=== PATIENT | male | born 1940 | race Asian ===

== ENCOUNTER 2016-10-16 00:04 | Inpatient (IN) | payer MEDICARE, MEDICAID ==
[2016-10-16] VITALS (18 sets, daily range): BP systolic 117–138; BP diastolic 49–67; PULSE 49–76; RESP 17–22; TEMP 97–98.1; O2SAT 95–99
[~2016-10-16] VITALS: Ht 170.2 cm; Wt 78.0 kg
[~2016-10-16 00:04] MED LIST: ACET325T53 GT; ACET650S22 GT; AMIN30LI2 GT; ASCO-339 GT; ASCO125T GT; ASCO500T20 GT; ASPI325T2 GT; ATOR80TA63 GT; CARV12.548 GT; CARV6.2554 GT; DOCU-144 GT; DULR10 RC; EPOE40003 SUBCUT; ESCI20TA GT; FAMO40OR3 GT; FER300L GT; FERR220S15 GT; FOLI-43 GT; FURO-149 GT; HEPA500014 SUBCUT; HYDR-1189 GT; INSU100V11 SQ; INSU100V9 SUBCUT; LACT10SO66 GT; LACTIN PO; LEVE100S GT; LEVE500T13 GT; LEVE500T13 PO; LORA-258 GT; LORA5TAB8 GT; LOSA50TA3 GT; MAGN400O4 GT; METO2.5T6 GT; METO5SOL GT; MINE473O2 GT; MULT-1117 GT; NOR10 GT; NUT.250L18 GT; OMEP20CA10 GT; ONDA4SYR GT; ONDA4TAB55 GT; POTA20PA4 GT; POTA20TA83 PO; PRO40 GT; ROB1 GT; SENN8.8S12 GT; SIME80TA GT; SSREG SUBCUT; SUCR1TAB78 GT; [UNRECOGNIZED DRUG - OTHER] GT
[2016-10-16 00:44] LABS: BILIRUBIN,URINE NEGATIVE (NEGATIVE); BLOOD, URINE NEGATIVE (NEGATIVE); COLOR,URINE YELLOW (YELLOW); GLUCOSE,URINE NEGATIVE (NEGATIVE); KETONES,URINE NEGATIVE (NEGATIVE); LEUKOCYTE ESTERASE ,URINE 2+ (NEGATIVE); NITRITE, URINE NEGATIVE (NEGATIVE); PH,URINE 5.5 (5.0-8.0); PROTEIN URINE 2+ (NEGATIVE); UROBILINOGEN,URINE 0.2 (0.2-1.0)
[2016-10-16 00:58] LABS: BASOPHILS # (AUTO) 0.1 K/uL (0.0-0.2); BASOPHILS % (AUTO) 0.4 % (0.0-2.0); EOSINOPHILS % (AUTO) 0.2 % (0.0-4.0); HEMOGLOBIN 8.7 g/dL (14.0-18.0); LYMPHOCYTES # (AUTO) 0.5 K/uL (1.0-5.5); LYMPHOCYTES % (AUTO) 2.7 % (20.5-51.5); MEAN CORPUSCULAR HEMOGLOBIN 28 pg (27-31); MEAN CORPUSCULAR HGB CONC 32 % (32-36); MEAN CORPUSCULAR VOLUME 88 fL (79.0-98.0); MONOCYTES # (AUTO) 0.3 K/uL (0.0-1.0); MONOCYTES % (AUTO) 1.8 % (1.7-9.3); NEUTROPHILS # (AUTO) 15.8 K/uL (1.8-7.7); PLATELET COUNT (AUTO) 306 K/uL (130-430); RED BLOOD CELL COUNT(AUTO) 3.07 MIL/uL (4.2-6.2); WHITE BLOOD COUNT (AUTO) 16.7 K/uL (4.8-10.8)
[2016-10-16 01:09] LABS: BACTERIA,URINE MODERATE /HPF (None Seen); CLARITY/URINE HAZY (CLEAR); RBC,URINE 0-3 /HPF (0-3); WBC,URINE 80-100 /HPF (0-3)
[2016-10-16 01:10] LABS: MUCUS,URINE None Seen /LPF (None Seen)
[2016-10-16 01:17] LABS: ALANINE AMINOTRANSFERASE 23 U/L (12-78); ALBUMIN 2.5 g/dL (3.4-4.8); ASPARTATE AMINOTRANSFERASE 24 U/L (10-37); CALCIUM 8.6 mg/dL (8.4-11.0); CHLORIDE 92 mmol/L (98-107); CREATININE 2.05 mg/dL (0.55-1.30); GLUCOSE 75 mg/dL (70-99); TOTAL BILIRUBIN 0.3 mg/dL (0.0-1.0); TOTAL PROTEIN, SERUM 7.1 g/dL (6.4-8.3)
[2016-10-16 01:30] LABS: ANION GAP 6 (5-15); SODIUM SERUM 125 mmol/L (136-145)
[2016-10-16] MEDS ORDERED: LEVOFLOXACIN 500 MG/D5W 100 ML IV ONE (01:45)
[2016-10-16 01:47] LABS: POTASSIUM 7.1 mmol/L (3.5-5.1); UREA NITROGEN, BLOOD 115 mg/dL (8-21)
[2016-10-16 01:51] LABS: NEUTROPHILS % (AUTO) 94.9 % (40.0-70.0)
[2016-10-16] MEDS ORDERED: DULR10 RC (01:54)
[2016-10-16] MEDS ORDERED: CARV12.548 GT (01:54)
[2016-10-16] MEDS ORDERED: ASPI325T2 GT (01:54)
[2016-10-16] MEDS ORDERED: ATOR80TA63 GT (01:54)
[2016-10-16] MEDS ORDERED: NOR10 GT (01:54)
[2016-10-16] MEDS ORDERED: ASCO500T20 GT (01:54)
[2016-10-16] MEDS ORDERED: DEXTROSE 50% JECT 50 ML DISP.SYRIN IVP ONE ×2 (02:00→09:15)
[2016-10-16] MEDS ORDERED: INSULIN REGULAR, HUMAN 10 UNITS/0.1 ML INJ IVP ONE (02:00)
[2016-10-16] MEDS ORDERED: CALCIUM GLUCONATE 1 GM/10 ML VIAL IVP ONE (02:00)
[2016-10-16] MEDS ORDERED: SODIUM BICARBONATE 8.4% JECT 50 MEQ/50 ML SYRINGE IVP ONE ×2 (02:00→09:15)
[2016-10-16] MEDS ORDERED: NS 500 ML IV ONE (02:15)
[2016-10-16] MEDS ORDERED: ASPIRIN 81 MG TAB.CHEW GT ONE (02:15)
[2016-10-16] MEDS ORDERED: IPRATROPIUM/ALBUTEROL SULFATE 3 ML AMPUL.NEB INH SCH (02:30)
[2016-10-16] MEDS ORDERED: IPRATROPIUM/ALBUTEROL SULFATE 3 ML AMPUL.NEB INH PRN (02:30)
[2016-10-16] MEDS: NACL 0.9% 1,000 ML IV SCH ×2 (04:27→11:50)
[2016-10-16 06:54] LABS: HEMATOCRIT 26.2 % (36-54); HEMOGLOBIN 8.6 g/dL (14.0-18.0); MEAN CORPUSCULAR HEMOGLOBIN 29 pg (27-31); MEAN CORPUSCULAR HGB CONC 33 % (32-36); MEAN CORPUSCULAR VOLUME 89 fL (79.0-98.0); PLATELET COUNT (AUTO) 303 K/uL (130-430); RED BLOOD CELL COUNT(AUTO) 2.96 MIL/uL (4.2-6.2); RED CELL DISTRIBUTION WIDTH 18.4 % (9.0-15.0); WHITE BLOOD COUNT (AUTO) 16.7 K/uL (4.8-10.8)
[2016-10-16 07:58] LABS: ANION GAP 7 (5-15); CALCIUM 8.8 mg/dL (8.4-11.0); CHLORIDE 91 mmol/L (98-107); CREATININE 1.95 mg/dL (0.55-1.30); SODIUM SERUM 127 mmol/L (136-145)
[2016-10-16 08:34] LABS: ATYPICAL LYMPHOCYTES % 0 % (0-0); BAND % (MANUAL) 5 % (0-6); BASOPHILS % (MANUAL) 0 % (0-2); EOSINOPHILS % (MANUAL) 2 % (0-7); LYMPHOCYTES % (MANUAL) 6 % (20-46); MONOCYTES % (MANUAL) 5 % (0-11)
[2016-10-16 08:35] LABS: POTASSIUM 6.9 mmol/L (3.5-5.1); UREA NITROGEN, BLOOD 109 mg/dL (8-21)
[2016-10-16 08:36] LABS: GLUCOSE 47 mg/dL (70-99)
[2016-10-16] MEDS ORDERED: INSULIN REGULAR, HUMAN 100 UNITS/ML, 10 ML VIAL IVP ONE (09:15)
[2016-10-16] MEDS ORDERED: FUROSEMIDE 20 MG/2 ML VIAL IVP ONE (09:15)
[2016-10-16] MEDS ORDERED: DEXTROSE 50% JECT 50 ML DISP.SYRIN ONE (09:37)
[2016-10-16] MEDS ORDERED: SODIUM POLYSTYRENE SULFONATE 15 GM/60 ML UDBTL RC ONE ×2 (10:30→16:00)
[2016-10-16 12:19] LABS: ANION GAP 5 (5-15); CALCIUM 8.7 mg/dL (8.4-11.0); CHLORIDE 95 mmol/L (98-107); CREATININE 2.02 mg/dL (0.55-1.30); GLUCOSE 135 mg/dL (70-99); SODIUM SERUM 131 mmol/L (136-145)
[2016-10-16 12:26] LABS: POTASSIUM 5.9 mmol/L (3.5-5.1); UREA NITROGEN, BLOOD 109 mg/dL (8-21)
[2016-10-16] MEDS: D10W 1,000 ML IV SCH ×2 (13:29→22:29)
[2016-10-16] MEDS: LEVOFLOXACIN 250 MG/D5W 50 ML IV SCH (20:15)
[2016-10-16 21:39] LABS: ANION GAP 10 (5-15); CALCIUM 8.6 mg/dL (8.4-11.0); CHLORIDE 93 mmol/L (98-107); CREATININE 1.78 mg/dL (0.55-1.30); GLUCOSE 126 mg/dL (70-99); SODIUM SERUM 126 mmol/L (136-145)
[2016-10-16 21:45] LABS: POTASSIUM 5.5 mmol/L (3.5-5.1)
[2016-10-16 21:48] LABS: UREA NITROGEN, BLOOD 100 mg/dL (8-21)
[2016-10-17] VITALS (16 sets, daily range): BP systolic 98–138; BP diastolic 48–96; PULSE 72–87; RESP 18–20; TEMP 97.5–98.4; O2SAT 98–100
[2016-10-17 07:17] LABS: BASOPHILS % (AUTO) 0.2 % (0.0-2.0); EOSINOPHILS # (AUTO) 0.1 K/uL (0.0-0.4); EOSINOPHILS % (AUTO) 0.9 % (0.0-4.0); HEMATOCRIT 25.7 % (36-54); HEMOGLOBIN 8.6 g/dL (14.0-18.0); LYMPHOCYTES # (AUTO) 0.5 K/uL (1.0-5.5); LYMPHOCYTES % (AUTO) 5.1 % (20.5-51.5); MEAN CORPUSCULAR HEMOGLOBIN 29 pg (27-31); MEAN CORPUSCULAR HGB CONC 34 % (32-36); MEAN CORPUSCULAR VOLUME 87 fL (79.0-98.0); MONOCYTES # (AUTO) 0.8 K/uL (0.0-1.0); MONOCYTES % (AUTO) 8.4 % (1.7-9.3); NEUTROPHILS # (AUTO) 7.8 K/uL (1.8-7.7); NEUTROPHILS % (AUTO) 85.4 % (40.0-70.0); PLATELET COUNT (AUTO) 266 K/uL (130-430); RED BLOOD CELL COUNT(AUTO) 2.94 MIL/uL (4.2-6.2); RED CELL DISTRIBUTION WIDTH 17.6 % (9.0-15.0)
[2016-10-17 07:24] LABS: WHITE BLOOD COUNT (AUTO) 9.2 K/uL (4.8-10.8)
[2016-10-17 07:24] LABS: BLOOD GAS BASE EXCESS 2.2 mmol/L (-3.0-3.0); BLOOD GAS PH 7.439 (7.350-7.450)
[2016-10-17 07:25] LABS: ABG TOTAL HEMOGLOBIN 9.2 G/dL (12.0-18.0); BLOOD GAS COHb% 0.9 % (0.5-1.5); BLOOD GAS HHB 3.7 % (0.0-6.0); BLOOD O2Hb% 95.3 % (94.0-97.0)
[2016-10-17 07:30] LABS: PROTHROMBIN TIME 10.6 SECS (9.5-12.5)
[2016-10-17 07:49] LABS: ALANINE AMINOTRANSFERASE 22 U/L (12-78); ALBUMIN 2.3 g/dL (3.4-4.8); ANION GAP 11 (5-15); ASPARTATE AMINOTRANSFERASE 23 U/L (10-37); CALCIUM 8.7 mg/dL (8.4-11.0); CHLORIDE 92 mmol/L (98-107); CREATININE 1.69 mg/dL (0.55-1.30); GLUCOSE 171 mg/dL (70-99); SODIUM SERUM 133 mmol/L (136-145); TOTAL BILIRUBIN 0.3 mg/dL (0.0-1.0); TOTAL PROTEIN, SERUM 6.6 g/dL (6.4-8.3); UREA NITROGEN, BLOOD 86 mg/dL (8-21)
[2016-10-17] MEDS: D10W 1,000 ML IV SCH (09:55)
[2016-10-17] MEDS ORDERED: D5/0.45 NS 1,000 ML IV SCH (11:33)
[2016-10-17] MEDS ORDERED: MIDAZOLAM HCL 5 MG/5 ML VIAL ONE (15:27)
[2016-10-17] MEDS ORDERED: fentaNYL CITRATE/PF 100 MCG/2 ML AMP ONE (15:28)
[2016-10-17] MEDS ORDERED: CEFAZOLIN 1 GM IVPB PREMIX 50 ML IV ONE (15:30)
[2016-10-17 17:29] LABS: BF APPEARANCE UNSPUN SLIGHTLY CLOUDY (CLEAR); BODY FLUID SOURCE/ TYPE THORACENTESIS; SOURCE/TYPE ,BODY FLUID PLEURAL
[2016-10-17 17:30] LABS: BODY FLUID COLOR DARK YELLOW (LT YELLOW); BODY FLUID TOTAL VOLUME 1100 mL
[2016-10-17 20:41] LABS: LYMPHOCYTES, BODY FLUID 15 %; MONOCYTES,BODY FLUID 30 %; NEUTROPHIL, BODY FLUID 55 %; RBC, BODY FLUID 4222 /uL; WBC, BODY FLUID 433 /uL
[2016-10-17] MEDS: LACTOBACILLUS RHAMNOSUS GG 1 CAP CAPSULE PO SCH (21:52)
[2016-10-17] MEDS: LEVOFLOXACIN 250 MG/D5W 50 ML IV SCH (21:52)
[2016-10-18] VITALS (19 sets, daily range): BP systolic 133–152; BP diastolic 63–68; PULSE 72–84; RESP 16–18; TEMP 97.5–99.2; O2SAT 98–100; Ht 170.2 cm; Wt 78.0 kg
[2016-10-18 07:31] LABS: ALANINE AMINOTRANSFERASE 21 U/L (12-78); ANION GAP 7 (5-15); ASPARTATE AMINOTRANSFERASE 21 U/L (10-37); CALCIUM 8.2 mg/dL (8.4-11.0); CHLORIDE 93 mmol/L (98-107); GLUCOSE 241 mg/dL (70-99); POTASSIUM 3.5 mmol/L (3.5-5.1); SODIUM SERUM 130 mmol/L (136-145); TOTAL BILIRUBIN 0.3 mg/dL (0.0-1.0); TOTAL PROTEIN, SERUM 5.9 g/dL (6.4-8.3); UREA NITROGEN, BLOOD 56 mg/dL (8-21)
[2016-10-18] MEDS: LACTOBACILLUS RHAMNOSUS GG 1 CAP CAPSULE PO SCH ×2 (08:27→20:42)
[2016-10-18] MEDS: 0.45% NACL 1,000 ML IV SCH ×2 (08:35→20:42)
[2016-10-18 10:41] LABS: BASOPHILS % (AUTO) 0.2 % (0.0-2.0); EOSINOPHILS # (AUTO) 0.1 K/uL (0.0-0.4); EOSINOPHILS % (AUTO) 1.6 % (0.0-4.0); HEMOGLOBIN 8.4 g/dL (14.0-18.0); LYMPHOCYTES # (AUTO) 0.4 K/uL (1.0-5.5); LYMPHOCYTES % (AUTO) 5.1 % (20.5-51.5); MEAN CORPUSCULAR HEMOGLOBIN 29 pg (27-31); MEAN CORPUSCULAR HGB CONC 32 % (32-36); MEAN CORPUSCULAR VOLUME 88 fL (79.0-98.0); MONOCYTES # (AUTO) 0.3 K/uL (0.0-1.0); MONOCYTES % (AUTO) 3.3 % (1.7-9.3); NEUTROPHILS # (AUTO) 7.8 K/uL (1.8-7.7); NEUTROPHILS % (AUTO) 89.8 % (40.0-70.0); PLATELET COUNT (AUTO) 259 K/uL (130-430); RED BLOOD CELL COUNT(AUTO) 2.94 MIL/uL (4.2-6.2); RED CELL DISTRIBUTION WIDTH 17.2 % (9.0-15.0); WHITE BLOOD COUNT (AUTO) 8.6 K/uL (4.8-10.8)
[2016-10-18 18:42] LABS: BODY FLUID GLUCOSE 187 mg/dL
[2016-10-18 18:43] LABS: BODY FLUID TOTAL PROTEIN 2.6 g/dL
[2016-10-18 18:59] LABS: SOURCE/TYPE ,BODY FLUID PLEURAL
[2016-10-18 19:00] LABS: APPEARANCE,SPUN,BODY FLUID CLEAR (CLEAR); BF APPEARANCE UNSPUN HAZY (CLEAR); BODY FLUID COLOR YELLOW (LT YELLOW); BODY FLUID SOURCE/ TYPE THORACENTESIS; BODY FLUID TOTAL VOLUME 1110 mL; WBC, BODY FLUID 72 /uL
[2016-10-18 19:01] LABS: LYMPHOCYTES, BODY FLUID 18 %; MONOCYTES,BODY FLUID 72 %; NEUTROPHIL, BODY FLUID 10 %; RBC, BODY FLUID 276 /uL
[2016-10-18] MEDS: LEVOFLOXACIN 250 MG/D5W 50 ML IV SCH (20:43)
[2016-10-18 22:47] LABS: BODY FLUID GLUCOSE 227 mg/dL
[2016-10-18 22:48] LABS: BODY FLUID TOTAL PROTEIN 2.4 g/dL
[2016-10-19] VITALS (18 sets, daily range): BP systolic 138–157; BP diastolic 67–83; PULSE 76–92; RESP 16–21; TEMP 96.8–99.7; O2SAT 93–100
[2016-10-19 07:24] LABS: ANION GAP 5 (5-15); CALCIUM 8.2 mg/dL (8.4-11.0); CHLORIDE 95 mmol/L (98-107); CREATININE 1.13 mg/dL (0.55-1.30); GLUCOSE 232 mg/dL (70-99); POTASSIUM 3.8 mmol/L (3.5-5.1); SODIUM SERUM 131 mmol/L (136-145); UREA NITROGEN, BLOOD 40 mg/dL (8-21)
[2016-10-19 07:33] LABS: BASOPHILS % (AUTO) 0.2 % (0.0-2.0); EOSINOPHILS # (AUTO) 0.1 K/uL (0.0-0.4); HEMATOCRIT 26.5 % (36-54); HEMOGLOBIN 8.6 g/dL (14.0-18.0); LYMPHOCYTES # (AUTO) 0.4 K/uL (1.0-5.5); LYMPHOCYTES % (AUTO) 4.5 % (20.5-51.5); MEAN CORPUSCULAR HEMOGLOBIN 28 pg (27-31); MEAN CORPUSCULAR HGB CONC 32 % (32-36); MEAN CORPUSCULAR VOLUME 87 fL (79.0-98.0); MONOCYTES # (AUTO) 0.5 K/uL (0.0-1.0); MONOCYTES % (AUTO) 5.2 % (1.7-9.3); NEUTROPHILS # (AUTO) 8.2 K/uL (1.8-7.7); NEUTROPHILS % (AUTO) 89.1 % (40.0-70.0); PLATELET COUNT (AUTO) 265 K/uL (130-430); RED BLOOD CELL COUNT(AUTO) 3.07 MIL/uL (4.2-6.2); RED CELL DISTRIBUTION WIDTH 16.7 % (9.0-15.0); WHITE BLOOD COUNT (AUTO) 9.2 K/uL (4.8-10.8)
[2016-10-19] MEDS ORDERED: BISACODYL 10 MG/SUPPOSITORY RC ONE (08:15)
[2016-10-19] MEDS: 0.45% NACL 1,000 ML IV SCH ×2 (09:26→22:58)
[2016-10-19] MEDS: SIMETHICONE 80 MG TAB.CHEW PO SCH ×3 (09:27→20:44)
[2016-10-19] MEDS: LACTOBACILLUS RHAMNOSUS GG 1 CAP CAPSULE PO SCH ×2 (09:27→20:42)
[2016-10-19] MEDS: MEROPENEM 1 GM in NS 100 ML IV SCH ×3 (09:36→22:56)
[2016-10-19] MEDS: TOBRAMYCIN 300MG/5ML INH AMPUL.NEB INH SCH (20:39)
[2016-10-20] VITALS (18 sets, daily range): BP systolic 132–157; BP diastolic 67–79; PULSE 78–120; RESP 12–21; TEMP 96.9–98.3; O2SAT 95–100
[2016-10-20] MEDS: MEROPENEM 1 GM in NS 100 ML IV SCH ×3 (06:02→21:02)
[2016-10-20] MEDS: TOBRAMYCIN 300MG/5ML INH AMPUL.NEB INH SCH (08:05)
[2016-10-20 08:22] LABS: BASOPHILS # (AUTO) 0.1 K/uL (0.0-0.2); BASOPHILS % (AUTO) 0.6 % (0.0-2.0); EOSINOPHILS # (AUTO) 0.2 K/uL (0.0-0.4); EOSINOPHILS % (AUTO) 2.1 % (0.0-4.0); HEMATOCRIT 25.3 % (36-54); HEMOGLOBIN 8.3 g/dL (14.0-18.0); LYMPHOCYTES # (AUTO) 0.6 K/uL (1.0-5.5); LYMPHOCYTES % (AUTO) 6.1 % (20.5-51.5); MEAN CORPUSCULAR HEMOGLOBIN 28 pg (27-31); MEAN CORPUSCULAR HGB CONC 33 % (32-36); MEAN CORPUSCULAR VOLUME 86 fL (79.0-98.0); MONOCYTES # (AUTO) 0.6 K/uL (0.0-1.0); MONOCYTES % (AUTO) 6.2 % (1.7-9.3); NEUTROPHILS # (AUTO) 7.7 K/uL (1.8-7.7); PLATELET COUNT (AUTO) 231 K/uL (130-430); RED BLOOD CELL COUNT(AUTO) 2.95 MIL/uL (4.2-6.2); RED CELL DISTRIBUTION WIDTH 17.3 % (9.0-15.0); WHITE BLOOD COUNT (AUTO) 9.2 K/uL (4.8-10.8)
[2016-10-20 08:27] LABS: ALANINE AMINOTRANSFERASE 16 U/L (12-78); ALBUMIN 1.8 g/dL (3.4-4.8); ANION GAP 6 (5-15); ASPARTATE AMINOTRANSFERASE 25 U/L (10-37); CALCIUM 7.8 mg/dL (8.4-11.0); CHLORIDE 95 mmol/L (98-107); CREATININE 1.07 mg/dL (0.55-1.30); GLUCOSE 206 mg/dL (70-99); POTASSIUM 3.8 mmol/L (3.5-5.1); SODIUM SERUM 131 mmol/L (136-145); TOTAL BILIRUBIN 0.2 mg/dL (0.0-1.0); TOTAL PROTEIN, SERUM 5.6 g/dL (6.4-8.3); UREA NITROGEN, BLOOD 32 mg/dL (8-21)
[2016-10-20] MEDS: LACTOBACILLUS RHAMNOSUS GG 1 CAP CAPSULE PO SCH ×2 (08:38→20:52)
[2016-10-20] MEDS: SIMETHICONE 80 MG TAB.CHEW PO SCH ×3 (08:38→20:51)
[2016-10-20] MEDS: 0.45% NACL 1,000 ML IV SCH (11:17)
[2016-10-20] MEDS ORDERED: ALBUMIN HUMAN 25% 50 ML IV ONE (13:15)
[2016-10-20] MEDS ORDERED: EPOETIN ALFA 20,000 UNITS/ML VIAL SUBCUT ONE (13:30)
[2016-10-20] MEDS ORDERED: FERROUS FUMARATE/DOCUSATE NA 1 TABLET.SA PO ONE (13:45)
[2016-10-20] MEDS: LEVALBUTEROL HCL 0.63 MG/3 ML VIAL.NEB INH SCH (19:48)
[2016-10-21] VITALS (16 sets, daily range): BP systolic 96–167; BP diastolic 59–106; PULSE 80–114; RESP 16–21; TEMP 96.6–97.1; O2SAT 96–99
[2016-10-21] MEDS: LORazepam 2 MG/ML VIAL IVP PRN ×2 (00:23→11:39)
[2016-10-21] MEDS: LEVALBUTEROL HCL 0.63 MG/3 ML VIAL.NEB INH SCH ×4 (01:09→19:49)
[2016-10-21] MEDS: 0.45% NACL 1,000 ML IV SCH (05:22)
[2016-10-21] MEDS: MEROPENEM 1 GM in NS 100 ML IV SCH ×3 (05:29→22:08)
[2016-10-21] MEDS: TOBRAMYCIN 300MG/5ML INH AMPUL.NEB INH SCH ×2 (07:00→19:52)
[2016-10-21 10:06] LABS: ANION GAP 1 (5-15); CHLORIDE 97 mmol/L (98-107); CREATININE 1.02 mg/dL (0.55-1.30); GLUCOSE 257 mg/dL (70-99); SODIUM SERUM 130 mmol/L (136-145); UREA NITROGEN, BLOOD 30 mg/dL (8-21)
[2016-10-21 10:09] LABS: BASOPHILS # (AUTO) 0.2 K/uL (0.0-0.2); BASOPHILS % (AUTO) 1.7 % (0.0-2.0); EOSINOPHILS # (AUTO) 0.1 K/uL (0.0-0.4); HEMATOCRIT 28.5 % (36-54); HEMOGLOBIN 9.2 g/dL (14.0-18.0); LYMPHOCYTES # (AUTO) 0.7 K/uL (1.0-5.5); LYMPHOCYTES % (AUTO) 6.8 % (20.5-51.5); MEAN CORPUSCULAR HEMOGLOBIN 28 pg (27-31); MEAN CORPUSCULAR HGB CONC 32 % (32-36); MEAN CORPUSCULAR VOLUME 87 fL (79.0-98.0); MONOCYTES # (AUTO) 0.7 K/uL (0.0-1.0); MONOCYTES % (AUTO) 6.4 % (1.7-9.3); NEUTROPHILS # (AUTO) 9.2 K/uL (1.8-7.7); NEUTROPHILS % (AUTO) 84.1 % (40.0-70.0); PLATELET COUNT (AUTO) 241 K/uL (130-430); RED BLOOD CELL COUNT(AUTO) 3.28 MIL/uL (4.2-6.2); RED CELL DISTRIBUTION WIDTH 17.2 % (9.0-15.0); WHITE BLOOD COUNT (AUTO) 10.9 K/uL (4.8-10.8)
[2016-10-21] MEDS: ENOXAPARIN SODIUM 30 MG/0.3 ML SYRINGE SUBCUT SCH (10:26)
[2016-10-21] MEDS: SIMETHICONE 80 MG TAB.CHEW PO SCH ×3 (10:26→22:08)
[2016-10-21] MEDS: LACTOBACILLUS RHAMNOSUS GG 1 CAP CAPSULE PO SCH ×2 (10:26→22:08)
[2016-10-21] MEDS: FERROUS FUMARATE/DOCUSATE NA 1 TABLET.SA PO SCH (10:26)
[2016-10-22] VITALS (19 sets, daily range): BP systolic 114–161; BP diastolic 65–94; PULSE 88–118; RESP 12–19; TEMP 97–98; O2SAT 97–100
[2016-10-22] MEDS: LEVALBUTEROL HCL 0.63 MG/3 ML VIAL.NEB INH SCH ×4 (01:51→19:46)
[2016-10-22] MEDS: LORazepam 2 MG/ML VIAL IVP PRN (05:39)
[2016-10-22] MEDS: MEROPENEM 1 GM in NS 100 ML IV SCH ×3 (05:39→21:40)
[2016-10-22] MEDS: ENOXAPARIN SODIUM 30 MG/0.3 ML SYRINGE SUBCUT SCH (09:11)
[2016-10-22] MEDS: LACTOBACILLUS RHAMNOSUS GG 1 CAP CAPSULE PO SCH (09:11)
[2016-10-22] MEDS: SIMETHICONE 80 MG TAB.CHEW PO SCH ×3 (09:11→21:40)
[2016-10-22] MEDS: FERROUS FUMARATE/DOCUSATE NA 1 TABLET.SA PO SCH (09:11)
[2016-10-22] MEDS: TOBRAMYCIN 300MG/5ML INH AMPUL.NEB INH SCH ×2 (13:17→20:10)
[2016-10-23] VITALS (20 sets, daily range): BP systolic 126–170; BP diastolic 76–99; PULSE 85–111; RESP 16–24; TEMP 96.6–98.9; O2SAT 99–100
[2016-10-23] MEDS: LEVALBUTEROL HCL 0.63 MG/3 ML VIAL.NEB INH SCH ×4 (00:17→19:42)
[2016-10-23] MEDS: MEROPENEM 1 GM in NS 100 ML IV SCH ×2 (05:47→15:19)
[2016-10-23 07:24] LABS: ANION GAP 4 (5-15); CALCIUM 8.9 mg/dL (8.4-11.0); CHLORIDE 99 mmol/L (98-107); CREATININE 0.97 mg/dL (0.55-1.30); GLUCOSE 198 mg/dL (70-99); POTASSIUM 4.4 mmol/L (3.5-5.1); SODIUM SERUM 135 mmol/L (136-145); UREA NITROGEN, BLOOD 35 mg/dL (8-21)
[2016-10-23 07:25] LABS: BASOPHILS # (AUTO) 0.1 K/uL (0.0-0.2); BASOPHILS % (AUTO) 0.3 % (0.0-2.0); EOSINOPHILS # (AUTO) 0.3 K/uL (0.0-0.4); EOSINOPHILS % (AUTO) 1.6 % (0.0-4.0); HEMATOCRIT 31.2 % (36-54); HEMOGLOBIN 10.2 g/dL (14.0-18.0); LYMPHOCYTES # (AUTO) 1.5 K/uL (1.0-5.5); MEAN CORPUSCULAR HEMOGLOBIN 29 pg (27-31); MEAN CORPUSCULAR HGB CONC 33 % (32-36); MEAN CORPUSCULAR VOLUME 87 fL (79.0-98.0); MONOCYTES % (AUTO) 5.8 % (1.7-9.3); NEUTROPHILS # (AUTO) 14.2 K/uL (1.8-7.7); NEUTROPHILS % (AUTO) 83.3 % (40.0-70.0); PLATELET COUNT (AUTO) 304 K/uL (130-430); RED BLOOD CELL COUNT(AUTO) 3.59 MIL/uL (4.2-6.2); WHITE BLOOD COUNT (AUTO) 17.1 K/uL (4.8-10.8)
[2016-10-23] MEDS: TOBRAMYCIN 300MG/5ML INH AMPUL.NEB INH SCH ×2 (07:54→19:42)
[2016-10-23] MEDS ORDERED: LACTASE 3000 UNIT TABLET PO PRN (08:00)
[2016-10-23] MEDS ORDERED: GENTAMICIN SULFATE 140 MG in NS 100 ML IV SCH (09:00)
[2016-10-23] MEDS: ENOXAPARIN SODIUM 30 MG/0.3 ML SYRINGE SUBCUT SCH (09:07)
[2016-10-23] MEDS: FERROUS FUMARATE/DOCUSATE NA 1 TABLET.SA PO SCH (09:07)
[2016-10-23 10:16] LABS: BILIRUBIN,URINE NEGATIVE (NEGATIVE); BLOOD, URINE TRACE (NEGATIVE); CLARITY/URINE HAZY (CLEAR); COLOR,URINE YELLOW (YELLOW); GLUCOSE,URINE NEGATIVE (NEGATIVE); KETONES,URINE NEGATIVE (NEGATIVE); LEUKOCYTE ESTERASE ,URINE 1+ (NEGATIVE); NITRITE, URINE NEGATIVE (NEGATIVE); PH,URINE 8.5 (5.0-8.0); PROTEIN URINE 2+ (NEGATIVE); UROBILINOGEN,URINE 0.2 (0.2-1.0)
[2016-10-23 10:29] LABS: BACTERIA,URINE MODERATE /HPF (None Seen); RBC,URINE 0-3 /HPF (0-3)
[2016-10-23 10:30] LABS: MUCUS,URINE 1+ /LPF (None Seen)
[2016-10-23] MEDS ORDERED: metroNIDAZOLE 250 MG TABLET PO SCH (14:00)
[2016-10-23] MEDS ORDERED: BALSAM PERU/CASTOR OIL 60 GM OINT...G. TP SCH (16:30)
[2016-10-23] MEDS ORDERED: BISACODYL 10 MG/SUPPOSITORY RC ONE (18:15)
[2016-10-23] MEDS: metroNIDAZOLE 500 mg/NS 100 ML IV SCH (22:00)
[2016-10-24] VITALS (15 sets, daily range): BP systolic 143–161; BP diastolic 75–89; PULSE 91–117; RESP 12–20; TEMP 96.5–98.6; O2SAT 98–100
[2016-10-24] MEDS: LEVALBUTEROL HCL 0.63 MG/3 ML VIAL.NEB INH SCH ×3 (01:10→13:11)
[2016-10-24 07:18] LABS: BASOPHILS % (AUTO) 0.4 % (0.0-2.0); EOSINOPHILS # (AUTO) 0.2 K/uL (0.0-0.4); EOSINOPHILS % (AUTO) 1.6 % (0.0-4.0); HEMATOCRIT 29.3 % (36-54); HEMOGLOBIN 9.5 g/dL (14.0-18.0); LYMPHOCYTES % (AUTO) 8.4 % (20.5-51.5); MEAN CORPUSCULAR HEMOGLOBIN 28 pg (27-31); MEAN CORPUSCULAR HGB CONC 32 % (32-36); MEAN CORPUSCULAR VOLUME 87 fL (79.0-98.0); MONOCYTES # (AUTO) 0.7 K/uL (0.0-1.0); MONOCYTES % (AUTO) 5.7 % (1.7-9.3); NEUTROPHILS # (AUTO) 9.6 K/uL (1.8-7.7); NEUTROPHILS % (AUTO) 83.9 % (40.0-70.0); PLATELET COUNT (AUTO) 252 K/uL (130-430); RED BLOOD CELL COUNT(AUTO) 3.37 MIL/uL (4.2-6.2); RED CELL DISTRIBUTION WIDTH 17.1 % (9.0-15.0); WHITE BLOOD COUNT (AUTO) 11.5 K/uL (4.8-10.8)
[2016-10-24 07:37] LABS: ALANINE AMINOTRANSFERASE 24 U/L (12-78); ALBUMIN 2.2 g/dL (3.4-4.8); ANION GAP 4 (5-15); ASPARTATE AMINOTRANSFERASE 25 U/L (10-37); CALCIUM 8.9 mg/dL (8.4-11.0); CHLORIDE 101 mmol/L (98-107); CREATININE 0.93 mg/dL (0.55-1.30); GLUCOSE 221 mg/dL (70-99); POTASSIUM 4.3 mmol/L (3.5-5.1); SODIUM SERUM 136 mmol/L (136-145); TOTAL BILIRUBIN 0.3 mg/dL (0.0-1.0); TOTAL PROTEIN, SERUM 6.5 g/dL (6.4-8.3); UREA NITROGEN, BLOOD 39 mg/dL (8-21)
[2016-10-24] MEDS: TOBRAMYCIN 300MG/5ML INH AMPUL.NEB INH SCH (09:13)
[2016-10-24] MEDS: FERROUS FUMARATE/DOCUSATE NA 1 TABLET.SA PO SCH (09:28)
[2016-10-24] MEDS: ENOXAPARIN SODIUM 30 MG/0.3 ML SYRINGE SUBCUT SCH (09:28)
[2016-10-24] MEDS: metroNIDAZOLE 500 mg/NS 100 ML IV SCH (14:33)
[2016-10-24] MEDS ORDERED: FUROSEMIDE 40 MG/4 ML VIAL IVP ONE (16:45)
== END 2016-10-24 18:40 | DRG 720 ==
LOC: SED 00:04 → STU 02:37
PROVIDERS: ADMIT Family Medicine; ATTEND Family Medicine
PROC: 5A1955Z Respiratory Ventilation, Greater than 96 Consecutive Hours (ICD-10-PCS; principal; 2016-10-16)
PROC: 0DH63UZ Insertion of Feeding Device into Stomach, Percutaneous Approach (ICD-10-PCS; 2016-10-17)
PROC: 0W993ZX Drainage of Right Pleural Cavity, Percutaneous Approach, Diagnostic (ICD-10-PCS; 2016-10-17)
PROC: BB4BZZZ Ultrasonography of Pleura (ICD-10-PCS; 2016-10-17)
PROC: 0W9B3ZX Drainage of Left Pleural Cavity, Percutaneous Approach, Diagnostic (ICD-10-PCS; 2016-10-17)
DX: A41.9 Sepsis, unspecified organism (principal); J96.20 Acute and chronic respiratory failure, unspecified whether with hypoxia or hypercapnia; J18.9 Pneumonia, unspecified organism; K65.9 Peritonitis, unspecified; G93.40 Encephalopathy, unspecified; N17.9 Acute kidney failure, unspecified; Z99.11 Dependence on respirator [ventilator] status; I13.0 Hypertensive heart and chronic kidney disease with heart failure and stage 1 through stage 4 chronic kidney disease, or unspecified chronic kidney disease; I50.9 Heart failure, unspecified; K94.23 Gastrostomy malfunction; T85.528A Displacement of other gastrointestinal prosthetic devices, implants and grafts, initial encounter; J91.8 Pleural effusion in other conditions classified elsewhere; E46 Unspecified protein-calorie malnutrition; E11.22 Type 2 diabetes mellitus with diabetic chronic kidney disease; K31.84 Gastroparesis; J44.0 Chronic obstructive pulmonary disease with (acute) lower respiratory infection; E11.43 Type 2 diabetes mellitus with diabetic autonomic (poly)neuropathy; E11.649 Type 2 diabetes mellitus with hypoglycemia without coma; N39.0 Urinary tract infection, site not specified; E87.5 Hyperkalemia; E86.9 Volume depletion, unspecified; F01.50 Vascular dementia, unspecified severity, without behavioral disturbance, psychotic disturbance, mood disturbance, and anxiety; I25.10 Atherosclerotic heart disease of native coronary artery without angina pectoris; K21.9 Gastro-esophageal reflux disease without esophagitis; N18.9 Chronic kidney disease, unspecified; M10.9 Gout, unspecified; D63.8 Anemia in other chronic diseases classified elsewhere; E78.5 Hyperlipidemia, unspecified; Z93.0 Tracheostomy status; F19.10 Other psychoactive substance abuse, uncomplicated; E87.1 Hypo-osmolality and hyponatremia; R13.10 Dysphagia, unspecified; Z79.82 Long term (current) use of aspirin; Z85.46 Personal history of malignant neoplasm of prostate; Z86.73 Personal history of transient ischemic attack (TIA), and cerebral infarction without residual deficits; Z90.49 Acquired absence of other specified parts of digestive tract; Z78.9 Other specified health status; Z95.1 Presence of aortocoronary bypass graft; Z88.8 Allergy status to other drugs, medicaments and biological substances
CPT/HCPCS: 32555; 36415; 36600; 43760; 71010; 74000-TC; 80048; 80053; 81000-TC; 82803-TC; 82947-TC; 82962; 83605; 84157-TC; 84484; 85007; 85025; 85027; 85610-TC; 85730-TC; 87040-TC; 87070-TC; 87081; 87086; 87101; 87116; 87186-TC; 87205-TC; 88108; 89051-TC; 89060-TC; 93005; 94002; 94003; 94640; 94760; 96361; 96365; 96375; 99285; C1729; J0610; J0690; J0885; J1580; J1650; J1815; J1940; J1956; J2060; J2185; J2250; J3010; J3260; J3490; J7030; J7060; P9046